=== PATIENT | female | born 1970 | race Caucasian/White ===

== ENCOUNTER 2022-02-07 13:29 | Inpatient (IN) | payer BC ==
[2022-02-07] MEDS ORDERED: Ondansetron ODT 4 MG TAB PO PRN (15:19)
[2022-02-07 16:03] LABS: #Lymphocytes 0.9 thou/uL (1.20-3.40); #Monocytes 0.3 thou/uL (0.11-0.59); #Neutrophils 13.4 thou/uL (1.40-6.50); %Basophils 0.2 % (0.0-1.0); %Eosinophils 0.1 % (0.0-10.0); %Lymphocytes 6.1 % (21.0-51.0); %Monocytes 2.2 % (0.0-10.0); %Neutrophils 91.3 % (42.0-75.0); Hemoglobin 11.9 g/dL (12.0-16.0); Mean Corpuscular HGB CONC 32.5 g/dL (32.0-36.0); Mean Corpuscular Hemoglobin 28.5 pg (27.0-31.0); Mean Corpuscular Volume 87.6 fl (78.0-98.0); Mean Platelet Volume 6.9 fL (7.4-10.4); Platelet Count 399 thou/uL (130-400); RBC Distribution Width 13.1 % (11.5-14.5); Red Blood Cell (RBC) Count 4.19 mill/uL (4.20-5.40); White Blood Cell (WBC) Count 14.7 thou/uL (4.8-10.8)
[2022-02-07 16:21] LABS: Anion Gap 13 mmol/L (10-20); BUN (Urea Nitrogen) 11 mg/dL (7.0-18.7); Calc. Creatinine Clearance 0 mL/min (70-130); Calcium 8.9 mg/dL (7.8-10.44); Carbon Dioxide 24 mmol/L (22-29); Chloride 105 mmol/L (98-107); Estimated GFR 92; Glucose 124 mg/dL (70-105); Potassium 3.7 mmol/L (3.5-5.1); Sodium 138 mmol/L (136-145)
[2022-02-07 17:56] VITALS: BMI 36.6
[2022-02-07] MEDS ORDERED: Pantoprazole 40 MG VIAL IVP SCH (18:45)
[2022-02-07] MEDS ORDERED: Thyroid 60 MG TAB PO SCH (19:00)
[2022-02-07] MEDS ORDERED: VANCOMYCIN 2 GRAM/400 ML BAG 2 GM in Premix Bag 1 BAG IVPB SCH (20:00)
[2022-02-07] MEDS: Acetaminophen 500 MG TAB PO PRN (23:32)
[2022-02-07] MEDS: Ampicillin/Sulbactam 3 GM in Sodium Chloride 0.9% 100 ML IVPB SCH (23:34)
[2022-02-08 04:10] LABS: #Monocytes 1.3 thou/uL (0.11-0.59); #Neutrophils 10.8 thou/uL (1.40-6.50); %Basophils 0.1 % (0.0-1.0); %Eosinophils 0.1 % (0.0-10.0); %Lymphocytes 7.8 % (21.0-51.0); %Monocytes 9.7 % (0.0-10.0); %Neutrophils 82.3 % (42.0-75.0); Hemoglobin 11.3 g/dL (12.0-16.0); Mean Corpuscular HGB CONC 32.1 g/dL (32.0-36.0); Mean Corpuscular Hemoglobin 28.4 pg (27.0-31.0); Mean Corpuscular Volume 88.6 fl (78.0-98.0); Mean Platelet Volume 7.1 fL (7.4-10.4); Platelet Count 383 thou/uL (130-400); RBC Distribution Width 13.2 % (11.5-14.5); Red Blood Cell (RBC) Count 3.99 mill/uL (4.20-5.40); White Blood Cell (WBC) Count 13.1 thou/uL (4.8-10.8)
[2022-02-08 04:23] LABS: Anion Gap 13 mmol/L (10-20); BUN (Urea Nitrogen) 10 mg/dL (7.0-18.7); Calc. Creatinine Clearance 152 mL/min (70-130); Carbon Dioxide 23 mmol/L (22-29); Chloride 104 mmol/L (98-107); Estimated GFR 99; Glucose 129 mg/dL (70-105); Potassium 3.6 mmol/L (3.5-5.1); Sodium 136 mmol/L (136-145)
[2022-02-08] MEDS: Ampicillin/Sulbactam 3 GM in Sodium Chloride 0.9% 100 ML IVPB SCH ×3 (05:49→12:04)
[2022-02-08] MEDS: Ondansetron PF 4 MG/2 ML Vial IVP PRN ×2 (07:49→13:44)
[2022-02-08] MEDS ORDERED: Dexamethasone 10 MG in Sodium Chloride 0.9% 50 ML IVPB SCH (09:00)
[2022-02-08] MEDS ORDERED: Dexamethasone Sod Phosphate 8 MG in Sodium Chloride 0.9% 50 ML IVPB SCH (09:00)
[2022-02-08] MEDS ORDERED: DULoxetine 30 MG CAP PO SCH (09:00)
[2022-02-08] MEDS ORDERED: Thyroid 60 MG TAB PO SCH (09:00)
[2022-02-08] MEDS ORDERED: Vancomycin 1.5 GRAM/300 ML BAG 1.5 GM in Premix Bag 1 BAG IVPB SCH (09:00)
[2022-02-08] MEDS: Acetaminophen 500 MG TAB PO PRN (09:28)
[2022-02-08 12:38] VITALS: BP 138/70; TEMP 99.2
== END 2022-02-08 14:35 | disposition home or self-care (01) | DRG 153 ==
LOC: ERS 13:29 → T4-A 15:56 → 2NO 21:36
PROVIDERS: ADMIT Internal Medicine; ATTEND Internal Medicine
PROC: 0CJS8ZZ Inspection of Larynx, Via Natural or Artificial Opening Endoscopic (ICD-10-PCS; principal; 2022-02-07)
DX: J05.10 Acute epiglottitis without obstruction (principal); K21.9 Gastro-esophageal reflux disease without esophagitis; E89.0 Postprocedural hypothyroidism; F32.A Depression, unspecified; J02.8 Acute pharyngitis due to other specified organisms; Z20.822 Contact with and (suspected) exposure to COVID-19; Z79.899 Other long term (current) drug therapy; Z88.6 Allergy status to analgesic agent; Z79.890 Hormone replacement therapy
CPT/HCPCS: 36415; 80048; 85025; 99285; C9113; J0295; J1100; J2405; J3370; J3490; J7030; Q0162; U0003; U0005

== ENCOUNTER 2023-01-30 11:17 | Emergency (ER) | payer BC ==
[2023-01-30] MEDS ORDERED: Lidocaine 1% PF 5 ML VIAL ONE (12:41)
[2023-01-30] MEDS ORDERED: traMADol HCl 50 MG TAB ONE (13:29)
[2023-01-30] MEDS ORDERED: Bacitracin 1 PK ONE (13:34)
== END 2023-01-30 13:43 | disposition home or self-care (01) ==
LOC: ERS 11:17
DX: S91.212A Laceration without foreign body of left great toe with damage to nail, initial encounter (principal); W26.8XXA Contact with other sharp object(s), not elsewhere classified, initial encounter
CPT/HCPCS: 12001

== ENCOUNTER 2023-03-20 17:21 | Observation (INO) | payer BC ==
[~2023-03-20 17:21] MED LIST: Iopamidol-370 76% 500 ML MDV (1 ML CHARGE) ONE
[2023-03-20] MEDS ORDERED: Sodium Chloride 0.9% 100 ML ONE (17:41)
[2023-03-20] MEDS ORDERED: Acetaminophen 500 MG TAB ONE (17:41)
[2023-03-20] MEDS ORDERED: Ampicillin/Sulbactam 3 GM VIAL ONE (17:41)
[2023-03-20 18:02] LABS: #Basophils 0.1 thou/uL (0.0-0.2); #Eosinphils 0.1 thou/uL (0.0-0.7); #Monocytes 0.8 thou/uL (0.11-0.59); #Neutrophils 8.9 thou/uL (1.40-6.50); %Basophils 0.5 % (0.0-1.0); %Eosinophils 0.9 % (0.0-10.0); Hemoglobin 10.8 g/dL (12.0-16.0); Mean Corpuscular HGB CONC 31.8 g/dL (32.0-36.0); Mean Corpuscular Volume 81.7 fl (78.0-98.0); Mean Platelet Volume 9.3 fL (7.4-10.4); Platelet Count 432 10x3/uL (130-400); RBC Distribution Width 15.7 % (11.5-14.5); Red Blood Cell (RBC) Count 4.16 mill/uL (4.20-5.40); White Blood Cell (WBC) Count 10.7 10x3/uL (4.8-10.8)
[2023-03-20 18:27] LABS: ALT (SGPT) 33 U/L (8-55); AST (SGOT) 32 U/L (5-34); Albumin 4.3 g/dL (3.5-5.0); Alkaline Phosphatase 98 U/L (40-110); Anion Gap 14 mmol/L (10-20); BUN (Urea Nitrogen) 7 mg/dL (9.8-20.1); Bilirubin, Total 0.3 mg/dL (0.2-1.2); Calc. Creatinine Clearance 0 mL/min (70-130); Calcium 9.2 mg/dL (7.8-10.44); Carbon Dioxide 26 mmol/L (22-29); Chloride 100 mmol/L (98-107); Estimated GFR 92; Glucose 90 mg/dL (70-105); Potassium 3.9 mmol/L (3.5-5.1); Protein, Total 8.3 g/dL (6.0-8.3); Sodium 136 mmol/L (136-145)
[2023-03-20 19:15] LABS: SARS-CoV-2 NAA Rapid Test Not Detected (NotDetected)
[2023-03-20] MEDS ORDERED: Ipratropium/Albuterol 3 ML NEB ONE (19:56)
[2023-03-20] MEDS ORDERED: Ipratropium/Albuterol 3 ML NEB EZPAP PRN (20:55)
[2023-03-20 21:26] LABS: Lactic Acid 2.8 mmol/L (0.5-2.2)
[2023-03-20] MEDS: Benzonatate 100 MG CAP PO PRN (21:55)
[2023-03-20] MEDS: Acetaminophen 325 MG TAB PO PRN (21:55)
[2023-03-20] MEDS: Oseltamivir 75 MG CAP PO SCH (21:55)
[2023-03-20] MEDS: Calcium Carbonate 500 MG ChewTAB PO PRN (22:12)
[2023-03-20] MEDS ORDERED: Sodium Chloride 0.9% 1,000 ML IV SCH (22:15)
[2023-03-20 22:50] VITALS: BMI 36.7
[2023-03-20] MEDS: Ampicillin/Sulbactam 3 GM in Sodium Chloride 0.9% 100 ML IVPB SCH (23:38)
[2023-03-21 01:11] LABS: Lactic Acid 1.1 mmol/L (0.5-2.2)
[2023-03-21] MEDS: Acetaminophen 325 MG TAB PO PRN ×4 (03:04→20:03)
[2023-03-21] MEDS ORDERED: Sodium Chloride 0.65% Nasal 44 ML BOT EA NARE PRN (03:17)
[2023-03-21] MEDS ORDERED: Ketorolac Tromethamine 30 MG/ML VIAL IVP SCH (04:15)
[2023-03-21] MEDS ORDERED: Acetaminophen 325 MG TAB PO SCH (04:15)
[2023-03-21] MEDS: Calcium Carbonate 500 MG ChewTAB PO PRN ×2 (04:20→08:49)
[2023-03-21 05:09] LABS: #Monocytes 0.8 thou/uL (0.11-0.59); #Neutrophils 5.9 thou/uL (1.40-6.50); %Basophils 0.4 % (0.0-1.0); %Eosinophils 0.3 % (0.0-10.0); %Lymphocytes 11.2 % (21.0-51.0); %Monocytes 10.4 % (0.0-10.0); %Neutrophils 77.2 % (42.0-75.0); Hemoglobin 9.5 g/dL (12.0-16.0); Mean Corpuscular HGB CONC 31.7 g/dL (32.0-36.0); Mean Corpuscular Volume 82.2 fl (78.0-98.0); Mean Platelet Volume 9.6 fL (7.4-10.4); Platelet Count 355 10x3/uL (130-400); Red Blood Cell (RBC) Count 3.65 mill/uL (4.20-5.40); White Blood Cell (WBC) Count 7.7 10x3/uL (4.8-10.8)
[2023-03-21] MEDS: Ampicillin/Sulbactam 3 GM in Sodium Chloride 0.9% 100 ML IVPB SCH ×2 (05:50→14:03)
[2023-03-21 05:57] LABS: Anion Gap 14 mmol/L (10-20); BUN (Urea Nitrogen) 6 mg/dL (9.8-20.1); Calc. Creatinine Clearance 158 mL/min (70-130); Calcium 8.3 mg/dL (7.8-10.44); Carbon Dioxide 22 mmol/L (22-29); Chloride 105 mmol/L (98-107); Estimated GFR 103; Glucose 125 mg/dL (70-105); Potassium 3.1 mmol/L (3.5-5.1); Sodium 138 mmol/L (136-145)
[2023-03-21] MEDS: Oseltamivir 75 MG CAP PO SCH ×2 (08:49→20:04)
[2023-03-21] MEDS: Benzonatate 100 MG CAP PO PRN (10:00)
[2023-03-21] MEDS: Ondansetron PF 4 MG/2 ML Vial IVP PRN ×2 (10:01→20:34)
[2023-03-21] MEDS ORDERED: traMADol HCl 50 MG TAB PO SCH (11:00)
[2023-03-21] MEDS ORDERED: Potassium Chloride 20 MEQ TAB PO SCH (12:00)
[2023-03-21] MEDS: Sodium Chloride 0.9% 1,000 ML IV SCH ×2 (13:36→20:07)
[2023-03-21] MEDS: DULoxetine 30 MG CAP PO SCH (20:04)
[2023-03-21] MEDS ORDERED: Non-Formulary Item 1 EACH (Lansoprazole [Prevacid] 30 MG Capsule.Dr) PO SCH (21:00)
[2023-03-21] MEDS: Fioricet 325/50/40 mg Tablet PO PRN (21:37)
[2023-03-22] MEDS: Fioricet 325/50/40 mg Tablet PO PRN (04:14)
[2023-03-22] MEDS: Sodium Chloride 0.9% 1,000 ML IV SCH (04:17)
[2023-03-22 04:21] LABS: #Monocytes 0.7 thou/uL (0.11-0.59); #Neutrophils 5.5 thou/uL (1.40-6.50); %Basophils 0.3 % (0.0-1.0); %Eosinophils 0.1 % (0.0-10.0); %Monocytes 8.9 % (0.0-10.0); %Neutrophils 72.3 % (42.0-75.0); Hematocrit 28.5 % (36.0-47.0); Hemoglobin 8.8 g/dL (12.0-16.0); Mean Corpuscular HGB CONC 30.9 g/dL (32.0-36.0); Mean Corpuscular Volume 84.1 fl (78.0-98.0); Mean Platelet Volume 10.6 fL (7.4-10.4); Platelet Count 288 10x3/uL (130-400); RBC Distribution Width 16.3 % (11.5-14.5); Red Blood Cell (RBC) Count 3.39 mill/uL (4.20-5.40); White Blood Cell (WBC) Count 7.6 10x3/uL (4.8-10.8)
[2023-03-22 04:48] LABS: Anion Gap 10 mmol/L (10-20); BUN (Urea Nitrogen) 4 mg/dL (9.8-20.1); Calc. Creatinine Clearance 155 mL/min (70-130); Carbon Dioxide 24 mmol/L (22-29); Chloride 103 mmol/L (98-107); Potassium 3.3 mmol/L (3.5-5.1); Sodium 134 mmol/L (136-145)
[2023-03-22 04:49] LABS: Estimated GFR 101; Glucose 111 mg/dL (70-105)
[2023-03-22] MEDS ORDERED: Potassium Chloride 20 MEQ TAB PO SCH (05:45)
[2023-03-22] MEDS ORDERED: Ketorolac Tromethamine 30 MG/ML VIAL IVP SCH (05:45)
[2023-03-22] MEDS: Acetaminophen 325 MG TAB PO PRN (05:56)
[2023-03-22] MEDS: Oseltamivir 75 MG CAP PO SCH (08:33)
[2023-03-22] MEDS: DULoxetine 30 MG CAP PO SCH (08:33)
[2023-03-22] MEDS ORDERED: Thyroid 60 MG TAB PO SCH (09:00)
[2023-03-22] MEDS ORDERED: THYROID PORK 120 MG PO SCH (09:00)
[2023-03-22 12:48] VITALS: BP 122/77; TEMP 98.8
== END 2023-03-22 13:15 | disposition home or self-care (01) ==
LOC: ERS 17:21 → 2SE 20:53
PROVIDERS: ADMIT Internal Medicine; ATTEND Internal Medicine
DX: A41.9 Sepsis, unspecified organism (principal); J10.1 Influenza due to other identified influenza virus with other respiratory manifestations; R00.0 Tachycardia, unspecified; E86.0 Dehydration; E86.1 Hypovolemia; D64.9 Anemia, unspecified; K21.9 Gastro-esophageal reflux disease without esophagitis; K44.9 Diaphragmatic hernia without obstruction or gangrene; E87.6 Hypokalemia; E03.9 Hypothyroidism, unspecified; F41.9 Anxiety disorder, unspecified; Z88.5 Allergy status to narcotic agent; Z79.890 Hormone replacement therapy; Z79.899 Other long term (current) drug therapy; Z20.822 Contact with and (suspected) exposure to COVID-19
CPT/HCPCS: 36415; 71275; 80048; 80053; 83605; 83735; 85025; 87040; 93005; 94640; 96365; 96367; 96375; 96376; G0378; J0295; J1650; J1885; J2405; J3490; J7050; J7611; J7620; Q9967